=== PATIENT | female | born 1960 | race Caucasian/White ===

== ENCOUNTER → 2021-10-07 18:21 | Outpatient (CLI) | payer OTHER, SELFPAY ==
--- NOTE | 2021-10-07 18:32 | DI.MRI.S_ITS ---
PROCEDURE: MR ABDOMEN WO/W CON INDICATIONS: Malignant neoplasm of colon TECHNIQUE: Coronal HASTE, axial 2D FLASH in- and [id number]; axial breath-hold T2 FSE. Dynamic axial VIBE during the administration of contrast; post-contrast coronal VIBE or 2D FLASH with fat saturation from the hepatic dome to the iliac crests. Optional diffusion weighted imaging and ADC may be performed. COMPARISON: None. FINDINGS: Image quality: Excellent. Lung bases: Numerous lung masses, for example in the left lower lobe measuring 2.2 cm. There is a periesophageal lymph node (8/9) measuring 1.3 cm. Solid organs: Numerous liver masses, for example in the inferior right lobe measuring 5.7 x 4.0 cm (8/91). Gallbladder is unremarkable. Pancreas, spleen, adrenals are unremarkable. Small renal cysts. Nodes and vessels: Mildly enlarged retroperitoneal lymph nodes, for example left pair aortic measuring 8 mm (8/56). Aorta and inferior vena cava are normal in size. Bowel and peritoneum: Partially seen cecal wall thickening. Small amount of perihepatic ascites. Bones and soft tissues: Breast implants. No focal suspicious enhancing bone lesion. IMPRESSION: Diffuse liver and lung masses suspicious for metastatic disease. Retroperitoneal and periesophageal ajit disease along the thoracic duct drainage pathway. Trace perihepatic ascites, possibly capsular disease. Extent of primary colon cancer would be better evaluated with direct visualization. Dictated by: Jacques Elliott M.D. on 10/08/2021 at 8:57 Approved by: Jacques Elliott M.D. on 10/08/2021 at 9:09
== END ==
PROVIDERS: Referring Provider Internal Medicine Hematology & Oncology; Visit Provider Internal Medicine Hematology & Oncology
DX: C18.9 Malignant neoplasm of colon, unspecified (principal); C77.2 Secondary and unspecified malignant neoplasm of intra-abdominal lymph nodes; K76.9 Liver disease, unspecified; M89.9 Disorder of bone, unspecified; R91.8 Other nonspecific abnormal finding of lung field
CPT/HCPCS: 74183; A9579